=== PATIENT | male | born 1970 | race African-American/Black ===

== ENCOUNTER 2025-08-21 11:27 | Inpatient (IN) | payer OTHER, SELFPAY ==
[2025-08-21] VITALS (13 sets, daily range): BP systolic 111–160; BP diastolic 69–103; BMI 36.2; BMI 34.3
[2025-08-21] MEDS: PROTONIX IV 80 MG IV (08:28)
[2025-08-21] MEDS: SANDOSTATIN 50 MCG IV (08:28)
[2025-08-21] MEDS: PROTONIX 100 IV ×2 (08:29→17:58)
[2025-08-21 08:32] LABS: Hematocrit 37.4 % (39.0-52.0); Hemoglobin 11.8 g/dL (13.0-18.0); Mean Corp Hgb Conc. 31.6 g/dL (33.0-37.0); Mean Corpuscular Volume 90.3 fL (80.0-94.0); Nucleated Red Blood Cells % 0 % (-); Platelet Count 267 10^3/uL (130-400); Red Cell Dist. Width 14.2 % (11.5-14.5)
--- NOTE | 2025-08-21 08:35 | ED.GENMED ---
History of Present Illness
General
Chief Complaint: Vomiting Blood
Source: patient and records
Exam Limitations: none
Time Seen by Provider: 08/21/25 07:52
Nursing documentation reviewed up to this point in time: agreed with
History of Present Illness
History of Present Illness:
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
[place] area has been to [place] before, states has been compliant with his meds, has varices,
Past History
Past History
ED Past Medical History: CVA (with residual left side weakness 'off and on'), HTN, Hypercholesterolemia, NIDDM and Other (Cirrhosis, ETOH abuse)
ED Past Surgical History: None
Social History
Tobacco: Smoker ('five packs a day')
Alcohol: Chronic alcoholic (States one fifth of vodka and one case beer daily)
Drug: None
Personal: Other ()
Living: with family (Resides with his son and grandchildren)
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
Family History
Family History: Hypertension and CAD
Phy Exam
Physical Exam
Physical Exam:
Physical Exam
General: Chronically ill male tremor
Neck: Dry lips noted no
Heart: s1/s2 regular rate and rhythm, no murmur. equal radial pulses.
Lungs: no acute respiratory distress. clear bilaterally
Abdomen: Mild epigastric
Neuro: alert and oriented.
Skin: no rash
Psychiatric: Disheveled anxious
Extremities: no edema.
Course
Orders/Labs/Results
Orders:
Orders
08/21/25 Breakfast
NPO
Allow oral meds: No
Allow clear liquids: Sips of Clears
08/21/25 07:59
Cardiac Monitoring- Treatment ONCE
IV Insert/Care/Rem.- Treatment PRN
Octreotide [Sandostatin] 50 mcg IV NOW STA
Pantoprazole 80 mg/100 ml Nss [Protonix] 80 mg in 100 ml IV NOW
Pantoprazole [Protonix IV] 80 mg IV NOW STA
08/21/25 08:00
Electrocardiogram (*1) Stat
Reason for Study: Other
Other Reason for Exam: GI Bleed
EKG- Treatment ONCE
CR Chest Portable - 1 View Urgent
Comment:
Reason For Exam: bleeding
Reason Study Needs to be Portable: Patient Unstable
08/21/25 08:16
Type+Screen Urgent
Complete Blood Count/With Diff Urgent
Comprehensive Metabolic Panel Urgent
Lipase Urgent
Magnesium Urgent
Comment: ADD ON
PTT Urgent
Prothrombin Time Urgent
08/21/25 08:35
Add On- LAB Urgent
Tests Added?: Magnesium
diazePAM [Valium Injection] 5 mg IV NOW STA
08/21/25 08:59
GASTROINTESTINAL CONSULT Urgent
Consulting Provider: Oswaldo Wilson
Was physician already notified: Yes
08/21/25 10:53
Admit/Transfer Patient As Directed
Co-Sign Provider:
Level of Care: Inpatient admission
Assign to:: IMU- Intermediate Care
Physician / Group: Hospitalist
Diagnosis: Upper GI bleeding
Reason for Hospitalization: Upper GI bleeding
Expected length of stay greater than two midnights?: Yes
ELOS- Estimated Length of Stay in days: 2
I certify the patient meets the requirements for IP care: Yes
08/21/25 10:54
PRN Pain Medication Management As Directed
May give lesser potent ordered pain med per pt: Yes
preference::
Protocol:: Medication orders for pain may be administered in a
manner that supports deferring to patient preference
when the pt is:
- Requesting an ordered lesser potent pain medication.
Least to most potent pain medications are defined
as: acetaminophen < NSAID < tramadol < opioids
(morphine, oxycodone, hydromorphone).
- Requesting a lesser dose of the same medication IF
ORDERED.
- Requesting a less intrusive route of administration
if both routes are prescribed by the provider (PO <
IV).
08/21/25 11:01
Code Status As Directed
Resuscitation Status: Full Code
08/21/25 11:23
US Abdomen Limited Routine
Comment:
Reason For Exam: evaluate for cirrhosis and ascites
08/21/25 16:15
Lactated Ringers [Lr] 500 ml IV 125 mls/hr
Lorazepam [Ativan] 1 mg IV Q1HPRN PRN
Lorazepam [Ativan] 1 mg PO Q2HPRN PRN
Octreotide Acetate [Sandostatin] 500 mcg 0.9% Sodium Chloride 250 ml [Nss] 249 ml IV Q10H
08/21/25 16:15
Urinalysis Routine
Date Specimen was Collected: 08/22/25
Time Specimen was Collected: 02:44
Urine Drug Abuse Screen Routine
Date Specimen was Collected: 08/22/25
Time Specimen was Collected: 02:44
Activity As Directed
Activity Level: With Assistance
INT (Intravenous Needle Therapy) As Directed
Comment: Place 2 IV catheters of the largest bore possible until stable
Orthostatic Vital Signs As Directed
Orthostatic VS Frequency: Now
Comment: then every four hours for twenty-four hours
Pneumatic Compression Sleeves As Directed
Type: Knee high
Vital Signs As Directed
Frequency: Per unit guidelines
DX Deep Vein Thrombosis Video Routine
08/21/25 17:24
Alcohol Urgent
B-Hydroxybutyrate Urgent
GGTP Urgent
H&H Q6H
PTT Urgent
Prothrombin Time Urgent
08/21/25 20:00
Thiamine Injection 200 mg IV Q12
08/21/25 23:00
H&H Q6H
08/22/25 08:00
FOLic ACID [Folvite] 1 mg PO DAILY
08/22/25 18:00
Atorvastatin [Lipitor] 40 mg PO QPM
08/23/25 13:36
Comprehensive Metabolic Panel IN AM
Abnormal Lab Results
08/21/25
08:16
RBC 4.14 L 10^6/uL
(4.70-6.10)
Hgb 11.8 L g/dL
(13.0-18.0)
Hct 37.4 L %
(39.0-52.0)
MCHC 31.6 L g/dL
(33.0-37.0)
Sodium 132 L mmol/L
(135-145)
Glucose 210 H mg/dl
(70-99)
Total Protein 8.5 H g/dl
(6.3-8.2)
08/21/25 08:16
08/21/25 08:16
Vital Signs
Initial and Last Documented VS:
Initial Vital Signs
Temp Pulse Resp BP Pulse Ox
97.9 F 82 16 160/97 100
08/21/25 08:19 08/21/25 08:19 08/21/25 08:19 08/21/25 08:19 08/21/25 08:19
Last Documented Vital Signs
Temp Pulse Resp BP Pulse Ox
98.3 F 75 18 138/83 99
08/24/25 07:00 08/24/25 07:00 08/24/25 07:00 08/24/25 07:00 08/24/25 07:00
MDM/Problems Addressed
Differential Diagnosis Includes:
Guerda-Burgos tear varices gastritis
MDM/Problems Addressed:
Upper GI bleed
Chronic conditions affecting care:
Alcoholism
Chronic conditions affecting care: Neurological disorder
Acute Exacerbation and/or Progression of Chronic Illness: Neurological disorder
*Radiology
Radiology exam reviewed: radiology read reviewed
*Pulse Oximetry
SaO2: 100
Oxygen Mode of Delivery: Room air
Patient hypoxic: no
*EKG
Interpreted by ED Provider?: Yes
Interpretation: abnormal
Comparison EKG: no comparison EKG present
Heart Rate: 78
Rate: normal
Rhythm: sinus
Ischemia: non-specific ST changes
*Classroom Coordinator Interpretation
Rate: normal
Interpretation: normal
Heart Rate: 78
Rhythm: sinus
*Critical Care Note
Total Time (30-74mins, 75-104mins- exclusive of procedures): 30
Data Reviewed
Review of Other/Old Records Reveals: Labs, Records and Discharge Summary
Source: patient
ED Attending Note
-
Portions of this chart may have been created with voice recognition software.� Occasional wrong word or��sound alike� substitutions may have occurred due to the inherent limitations of voice recognition software.
Discharge Plan
Departure
Patient Disposition: Admit
Date of Disposition: 08/21/25
Time of Disposition: 11:01
Admit to: IMU
Presentation/result/management discussed w/ accepting MD/DO: Hospitalist
Patient with high blood pressure during this ER visit?: No
Condition: Fair
Discharge Problem:
Hematemesis, Alcohol abuse
Interventions
Interventions:
*Risk Screen - Suicide Last Done: 08/21/25 08:45
*General Assessment Last Done: 08/21/25 08:45
*Neglect/Abuse Screening Last Done: 08/21/25 08:45
*ED- Fall Risk Assessment Last Done: 08/21/25 08:45
*ED COVID-19 Vaccine History Last Done: 08/21/25 09:15
*ED Influenza Vaccine History Last Done: 08/21/25 08:45
*Nursing Disposition Last Done: 08/21/25 16:27
OL-Etekcs-Forgxaexvw Assessment Last Done: 08/21/25 08:43
ED- Cardiac Assessment Last Done: 08/21/25 08:43
ED- Pulmonary Assessment Last Done: 08/21/25 08:43
Discharge Date and Time
Discharge Date/Time: 08/21/25 16:27
[2025-08-21 08:44] LABS: ALT (SGPT) 35 U/L (0-50); AST (SGOT) 39 U/L (17-59); Albumin 4.8 g/dl (3.5-5.0); Alkaline Phosphatase 97 U/L (38-126); Blood Urea Nitrogen 13 mg/dl (9-20); Calcium 9.6 mg/dl (8.4-10.2); Carbon Dioxide 23 mmol/L (22-30); Chloride 102 mmol/L (98-107); Estimated Creatinine Clearance > 125 ml/min; Glucose 210 mg/dl (70-99); Lipase 106 U/L (23-300); Potassium 4.0 mmol/L (3.5-5.1); Sodium 132 mmol/L (135-145); Total Protein 8.5 g/dl (6.3-8.2); eGFR > 60.00
[2025-08-21 08:48] LABS: INR 0.98; PT 13.3 Sec (11.4-14.6)
[2025-08-21 08:50] LABS: APTT 25.6 Sec (23.4-35.0); Magnesium 1.8 mg/dl (1.6-2.3)
--- NOTE | 2025-08-21 08:55 | PHANOTE ---
med rec note- patient stated medication he not filling or filled. patient claims he takes lactulose, Lasix, gabapentin, glipizide. patient one ecw chart is from 2022 and the other ecw chart with same and name is empty. patient goes to [facility]
and [facility] but no fills for these medication is stated he takes
[2025-08-21] MEDS: VALIUM INJECTION 5 MG IV (08:56)
--- NOTE | 2025-08-21 09:26 | HPS.HSE ---
Addendum entered and electronically signed by Sedrick Chavez MD 08/21/25 13:00:
I personally performed a history and physical exam of the patient and discussed management with the resident. I reviewed the resident's note and agree with the documented findings and plan of care HPI/CC.
55-year-old male past medical history of chronic alcohol abuse, hypertension, hyperlipidemia, diabetes, stroke who was presented via EMS with hematemesis. Patient with alcohol withdrawal in ER and received IV Valium. Patient was sleepy and
lethargic upon my evaluation. Unable to obtain further history.
General: Other (Drowsy,
HEENT: NormoCephalic and Atraumatic
Respiratory: Clear
Cardiac: S1/S2 and Regular Rhythm
GI: Soft, Non Distended, Normal Bowel Sounds and Tender on epigastric region on deep palpaptions
Skin: Warm and Dry
Neuro: sleepy
Impression
Hematemesis likely secondary to upper GI bleed secondary to suspected Guerda-Burgos tear versus variceal bleeding
Suspected acute alcoholic alcohol abuse
Primary hypertension
Hyperlipidemia
Stroke
Diabetes mellitus
Hepatic steatosis
Plan
Keep NPO. IV fluids
Check H&H. PPI drip. Octreotide drip.
Hemoglobin currently stable.
Check abdominal ultrasound.
Defer endoscopy to gastroenterology
Alcohol withdrawal protocol
Check alcohol level and urine drug screen
Insulin sliding scale
Hold blood pressure meds
Monitor mentation closely
DVT prophylaxis SCDs in the setting of GI bleeding
Discussed with gastroenterology
I spent a total of 80 minutes with the patient or on the floor. More than 50% of this time involved counseling and coordination of care.
Original Note:
Family Physician
-
Family Physician: Dr. Monica Hernandez with [facility].
Chief Complaint
-
Hematemesis
History of Present Illness
55-year-old male with past medical history of chronic alcohol abuse, hypertension, hyperlipidemia, DM type II, CVA, Guerda-Burgos tear presented to the ER by EMS for evaluation of bloody vomitus. Patient appears groggy and drowsy, although he is
able to provide history. 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 Patient drinks alcohol every day�bottle of vodka
and beer, last drink was around 10 PM yesterday night. He reports having fatigue, generalized body pains, diffuse abdominal pain since morning. Patient reports that he had cirrhosis for which he takes lactulose every day, not able to recall who
prescribed it (med rec�for constipation). Patient denies fever/chills, chest pain, SOB, palpitations, headaches, melena, not on aspirin/NSAIDs/ anticoagulants.
Medical History
Past Medical History
Past Medical History: Reports CVA, HTN, Hypercholesterolemia and NIDDM
Additional Past Medical History:
Chronic alcohol abuse, fatty liver (ultrasound 2021)
Past Surgical History: Reports None
Social History
Tobacco: Smoker
Alcohol: Daily
Drug: Former User (Cocaine)
Personal: Single
Living: With Family
Employment: Employed
Family History
Family History: Not pertinent
Allergies / Home Medications
Allergies reflects when Allergies were last updated in [facility].
Home Medications with original date entered in [facility]
Allergy/Medication List:
Allergies
Allergy/AdvReac Type Severity Reaction Status Date / Time
risperidone Allergy Intermediate Pharmacy Verified 06/16/23 20:39
to Review
alteplase Allergy Hives; Verified 06/16/23 17:06
tolerated
dose
03/03/23 w/
pre-treatment
Iodinated Contrast Media Allergy See below Verified 06/16/23 17:06
Home Medications
gabapentin 300 mg capsule 300 mg PO BID Neurological Condition ##0 03/07/23
lactulose 10 gram/15 mL oral solution 10 g PO DAILYPRN PRN constipation 03/07/23
cyanocobalamin (vitamin B-12) 1,000 mcg tablet 1,000 mcg PO DAILY Supplement 06/16/23
trazodone 50 mg tablet 50 mg PO HS Sleep 06/16/23
atorvastatin 40 mg tablet 40 mg PO QPM High Cholesterol 06/17/23
amlodipine 10 mg tablet (Norvasc) 10 mg PO DAILY 08/21/25
hydrochlorothiazide 25 mg tablet 25 mg PO DAILY 08/21/25
insulin aspart U-100 100 unit/mL (3 mL) subcutaneous pen (Novolog FlexPen U-100 Insulin aspart) 1 sliding scale dose SC AC 08/21/25
lisinopril 20 mg tablet 20 mg PO DAILY 08/21/25
metformin 500 mg tablet 500 mg PO BID 08/21/25
pantoprazole 20 mg tablet,delayed release (Protonix) 20 mg PO DAILY 08/21/25
Review of Systems
-
A 12 point ROS was completed and negative except as noted: Yes
Physical Exam
Vital Signs
Vital Signs
Temp Pulse Resp BP Pulse Ox
97.9 F 83 14 126/74 99
08/21/25 08:19 08/21/25 09:08 08/21/25 09:08 08/21/25 09:08 08/21/25 09:08
Physical Exam
General: Other (Drowsy, but conversant)
HEENT: NormoCephalic and Atraumatic
Respiratory: Clear
Cardiac: S1/S2 and Regular Rhythm
GI: Soft, Non Distended, Normal Bowel Sounds and Tender
Skin: Warm and Dry
Neuro: Awake, Oriented, Nonfocal/grossly intact and No Sensory Deficits
Laboratory Results
-
08/21/25 08:16
08/21/25 08:16
Laboratory Results
PT 13.3 Sec (11.4-14.6) 08/21/25 08:16
INR 0.98 08/21/25 08:16
APTT 25.6 Sec (23.4-35.0) 08/21/25 08:16
Total Bilirubin 0.5 mg/dl (0.2-1.3) 08/21/25 08:16
AST 39 U/L (17-59) 08/21/25 08:16
ALT 35 U/L (0-50) 08/21/25 08:16
Alkaline Phosphatase 97 U/L (38-126) 08/21/25 08:16
Lipase 106 U/L (23-300) 08/21/25 08:16
Impression/Plan
-
IMPRESSION:
55-year-old male with medical history of chronic alcohol abuse, hypertension, hyperlipidemia, DM type II, fatty liver, CVA presenting to the ER with hematemesis.
PLAN:
#Upper GI bleeding
Patient with history of chronic alcohol abuse
Patient is hemodynamically stable
Etiology likely due to bleeding esophageal varices versus erosive gastritis/duodenal erosions
History of multiple prior admissions for the same.
Patient already started on IV Protonix drip, continue
Start IV fluids�LR
N.p.o.
Start octreotide drip
GI already on board
Ultrasound in 2021 with fatty liver
Will check coags, monitor LFTs
EGD - December 2022 showed salmon colored esophageal mucosa and duodenal erosions. No bleeding. No varices.
EGD when able
Ultrasound abdomen with Doppler
#Acute alcohol withdrawal
Last drink at 10 PM yesterday night.
Patient is actively withdrawing on exam
Patient with history of chronic alcohol abuse
Check toxicology
M sas protocol
#DM type II
Hold metformin
Start SSI
#Hypertension
Hold home amlodipine, hydrochlorothiazide, lisinopril
Monitor blood pressure
#Hyperlipidemia
Can continue atorvastatin, when able
#History of CVA
Diet�n.p.o.
DVT prophylaxis�SCDs
Full code.
--- NOTE | 2025-08-21 09:50 | CON.GI ---
Addendum entered and electronically signed by Oswaldo Wilson MD 08/21/25 13:24:
I saw and evaluated the patient. I reviewed the resident�s note and agree with findings and plan as documented in the resident�s note.
55yo male presents with hematemesis at home in setting of active heavy EtOH intake. Confused and hallucinating in ER. Hgb 11.8. BP 139/82, HR 81. He had episode of hematemesis in 2022 and 2020 with EGDs negative for varices, no signs of active
bleeding. Suspected resolved MW tear. US showed hepatomegaly, fatty liver, normal spleen 2022.
REC:
Since he is in active EtOH withdrawal, will hold off on EGD
He is hemodynamically stable.
Follow Hgb
Octreotide and protonix gtt for now
Consider EGD tomorrow if not in active withdrawal
Check US. If ascites- paracentesis
Original Note:
Medical History
Chief Complaint / HPI
Chief Complaint: hemetemesis
History of Present Illness:
55yoM HTN, HLD, DM, AUD presenting with hematemesis and hematochezia.
Pt is somnolent after receiving Valium for alcohol withdrawal symptoms, but reports waking up this morning and vomiting 'lots' of blood and seeing bright red blood in his stool. He denies ever having this before. Pt has hx AUD last drink last night
at 9pm. He reports usually waking up in the morning and drinking but he did not this morning since he was vomiting blood and dealing with family issues. He reports having dizziness with vomiting but none currently. Pt denies vomiting and then having
blood in vomitus, rather immediately hematemesis. No vomiting or diarrhea since being in ED per pt and nurse.
Pt reports drinking up to a gallon of vodka and case of beers a day for the last 10-12 years. He denies having diagnosed problems with his liver or seeing a GI doctor but his PCP does prescribes him lactulose. He reports having yellowing of his eyes
and tremors of his hands at times but not every day.
He was admitted in 2022 for hemetemesis when he reports not having varices found.
Past Medical History
Past Medical History: HTN, Hypercholesterolemia, IDDM (sliding scale) and Psychiatric (alcohol use disorder)
Social History
Alcohol: Daily (up to gallon vodka and case of beers a day)
Allergies / Home Medications
Allergy/AdvReac Type Severity Reaction Status Date / Time
risperidone Allergy Intermediate Pharmacy Verified 06/16/23 20:39
to Review
alteplase Allergy Hives; Verified 06/16/23 17:06
tolerated
dose
03/03/23 w/
pre-treatment
Iodinated Contrast Media Allergy See below Verified 06/16/23 17:06
�Medication �Instructions �Recorded
gabapentin 300 mg capsule 300 mg PO BID Neurological 03/07/23
Condition ##0
lactulose 10 gram/15 mL oral 10 g PO DAILYPRN PRN constipation 03/07/23
solution
cyanocobalamin (vitamin B-12) 1,000 mcg PO DAILY Supplement 06/16/23
1,000 mcg tablet
trazodone 50 mg tablet 50 mg PO HS Sleep 06/16/23
atorvastatin 40 mg tablet 40 mg PO QPM High Cholesterol 06/17/23
amlodipine 10 mg tablet (Norvasc) 10 mg PO DAILY 08/21/25
hydrochlorothiazide 25 mg tablet 25 mg PO DAILY 08/21/25
insulin aspart U-100 100 unit/mL 1 sliding scale dose SC AC 08/21/25
(3 mL) subcutaneous pen (Novolog
FlexPen U-100 Insulin aspart)
lisinopril 20 mg tablet 20 mg PO DAILY 08/21/25
metformin 500 mg tablet 500 mg PO BID 08/21/25
pantoprazole 20 mg tablet,delayed 20 mg PO DAILY 08/21/25
release (Protonix)
Review of Systems
-
Unable to obtain full review of systems at this time due to: Other (somnolent )
History Source: Patient
Abdomen/GI: Reports Vomiting (blood ) and Bloody Stools
Vital Signs
Temp Pulse Resp BP Pulse Ox
97.9 F 85 11 126/74 99
08/21/25 08:19 08/21/25 09:30 08/21/25 09:30 08/21/25 09:08 08/21/25 09:30
Physical Exam
Exam
General: Other (somnolent)
HEENT: Normocephalic, Moist Mucous Membranes and Other (mild scleral icterus, poor dentition )
Respiratory: Clear and Non Labored Respirations (snoring)
Cardiac: S1/S2 and Regular Rhythm
GI: Soft, Tender (diffusely, voluntary guarding) and Distended
Musculoskeletal: No Edema
Skin: Warm and Dry
Neuro: AO x 3 and Tremors (asterixis )
Psych: Other (somnolent)
Results
WBC 9.1 10^3/uL (4.8-10.8) 08/21/25 08:16
Hgb 11.8 g/dL (13.0-18.0) L 08/21/25 08:16
Hct 37.4 % (39.0-52.0) L 08/21/25 08:16
MCV 90.3 fL (80.0-94.0) 08/21/25 08:16
Plt Count 267 10^3/uL (130-400) 08/21/25 08:16
Absolute Neuts (auto) 5.2 10^3/uL (1.4-6.5) 08/21/25 08:16
PT 13.3 Sec (11.4-14.6) 08/21/25 08:16
INR 0.98 08/21/25 08:16
APTT 25.6 Sec (23.4-35.0) 08/21/25 08:16
Sodium 132 mmol/L (135-145) L 08/21/25 08:16
Potassium 4.0 mmol/L (3.5-5.1) 08/21/25 08:16
Chloride 102 mmol/L (98-107) 08/21/25 08:16
Carbon Dioxide 23 mmol/L (22-30) 08/21/25 08:16
BUN 13 mg/dl (9-20) 08/21/25 08:16
Creatinine 0.7 mg/dL (0.7-1.3) 08/21/25 08:16
Calcium 9.6 mg/dl (8.4-10.2) 08/21/25 08:16
Total Bilirubin 0.5 mg/dl (0.2-1.3) 08/21/25 08:16
AST 39 U/L (17-59) 08/21/25 08:16
ALT 35 U/L (0-50) 08/21/25 08:16
Alkaline Phosphatase 97 U/L (38-126) 08/21/25 08:16
Lipase 106 U/L (23-300) 08/21/25 08:16
Diagnostic Image Results:
CXR
IMPRESSION:
No evidence of active cardiopulmonary disease.
Prior GI Procedures:
EGD: 05/2023 No varices
Colonoscopy:
Assessment / Plan
-
55yoM HTN, HLD, IDDM, AUD presenting with hematemesis and hematochezia.
AFVSS. Hemodynamically stable, Hgb stable from 2 years ago. Pt drinks bottle of vodka and case of beer a day. Actively withdrawing; last alcoholic drink last night at 9pm. Per nursing, pt was having visual hallucinations and tremulous, scoring MSAS.
LFTs WNL, plts WNL, coags WNL. Objectively not cirrhotic per labs.
ECG normal. CXR normal. Mild scleral icterus. Pt was not cirrhotic on US 2 years ago. Pt reports having heavy alcohol use for last 10 years, so possible to have had rapid progression. Pt reports vomiting immediately with blood, so less likely
ambrosio seth but still possible. Diffuse abdominal pain. Pt did not reports recent NSAID use but difficult historian given somnolence. Demonstrating asterixis and very mild scleral icterus despite bilirubin low, WNL.
Ambrosio seth vs bleeding ulcer vs varices
#hematemesis
- Plan for EGD. Pt currently too somnolent to safely scope. Plan for once mental status improves.
- Continue on PPI drip. Received octreotide bolus, continue on octreotide drip
- Abdominal US. Evaluate for ascites and cirrhosis. If large amount of fluid, plan for paracentesis. R/o SBP.
- Monitor mental status and symptoms. No vomiting or diarrhea since presenting
- Continue home lactulose if able to take PO
-
-
Thank you for consultation and allowing me to participate in the patient's care. Please call the search engine optimization analyst GI physician during the after hours with any questions or concerns.
[2025-08-21 17:14] LABS: Glucose - Point of Care 161 mg/dl (70-99)
[2025-08-21] MEDS: ATIVAN 1 MG IV (17:15)
[2025-08-21 17:31] LABS: Hematocrit 33.2 % (39.0-52.0); Hemoglobin 11.3 g/dL (13.0-18.0)
[2025-08-21 17:41] LABS: INR 0.99; PT 13.4 Sec (11.4-14.6)
[2025-08-21 17:42] LABS: APTT 25.6 Sec (23.4-35.0)
[2025-08-21 17:49] LABS: GGTP 39 U/L (15-73)
[2025-08-21] MEDS: SANDOSTATIN 250 MCG IV (17:49)
[2025-08-21] MEDS: NOVOLOG FLEXPEN-LOW RESISTANCE SC (19:05)
[2025-08-21] MEDS: ATIVAN 2 MG IV ×3 (19:52→22:30)
[2025-08-21] MEDS: LR 1000 IV (19:52)
[2025-08-21] MEDS: THIAMINE INJECTION 200 MG IV (19:52)
--- NOTE | 2025-08-21 20:00 | PTCARENOTE ---
Received pt. at 1900. Pt. currently awake. Restless. PRN Ativan given per MSAS, see MAR. Denies pain/discomfort. Heart rhythm sinus. Blood pressure normotensive. Currently on room air. Lungs sound diminished. NPO with sips of clears. Voiding in
urinal. Skin as documented. Vital signs stable at this time.
--- NOTE | 2025-08-21 20:19 | PTCARENOTE ---
recieved pt from ED. msas as documented. pt medicated per protocol. pt states that he is very anxious and is seeing birds. pt scored moderate risk on suicide screen. pt states his life 'sucks' but says he doesnt currently want to hurt himself.
physician notified. one to one observation ordered and initiated. octreotide and protonix drips infusing. no signs of bleeding at this time. pt reported some nausea and crampy feeling in abdomen. also c/o feeling hungry. few sips of clears given.
labs sent and hemoglobin stable.
[2025-08-21 22:44] LABS: Glucose - Point of Care 153 mg/dl (70-99)
[2025-08-21 23:10] LABS: Hematocrit 33.7 % (39.0-52.0); Hemoglobin 11.6 g/dL (13.0-18.0)
[2025-08-21 23:30] LABS: Magnesium 1.7 mg/dl (1.6-2.3)
[2025-08-22] VITALS (9 sets, daily range): BP systolic 110–159; BP diastolic 60–108; BMI 34.8
[2025-08-22] MEDS: ATIVAN 2 MG IV (00:30)
[2025-08-22] MEDS: NOVOLOG FLEXPEN-LOW RESISTANCE 1 UNITS SC ×3 (00:34→17:37)
[2025-08-22] MEDS: PROTONIX 100 IV (02:10)
[2025-08-22] MEDS: SANDOSTATIN 250 MCG IV (02:11)
[2025-08-22] MEDS: LR 1000 IV (02:14)
[2025-08-22 03:13] LABS: Urine Character Clear (Clear)
[2025-08-22 03:29] LABS: Urine Red Blood Cell 0-2 /HPF (0-2); Urine Squamous Cell 0-2 /LPF (Few); Urine White Cell 0-2 /HPF (0-5)
[2025-08-22 05:19] LABS: Glucose - Point of Care 196 mg/dl (70-99)
[2025-08-22] MEDS: VITAMIN B-12 1000 MCG PO (07:50)
[2025-08-22] MEDS: THIAMINE INJECTION 200 MG IV ×2 (07:51→19:40)
[2025-08-22] MEDS: FOLVITE 1 MG PO (07:51)
--- NOTE | 2025-08-22 08:22 | W.PN.GI.CBS2 ---
Today's Communication / Plan
-
EGD today to evaluate hematemesis
Hgb stable in 11 range
If EGD negative, d/c octreotide, protonix gtts
Assessment / Plan
-
Summary: 55yo male presents with hematemesis at home in setting of active heavy EtOH intake. Confused and hallucinating in ER. Hgb 11.8. BP 139/82, HR 81. He had episode of hematemesis in 2022 and 2020 with EGDs negative for varices, no signs of
active bleeding. Suspected resolved MW tear. US showed hepatomegaly, fatty liver, normal spleen 2022.
08/21/25 US- Increased echogenicity liver, suggestive fatty infiltration. No ascites. Limited US
Impression:
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 Possible MWT vs varices, portal gastropathy. Labs and US not suggestive of cirrhosis and EGD in 2022 negative varices or gastropathy
EtOH use
Subjective
Subjective
Date of Service: August 22, 2025
No vomiting overnight. More alert this am. Answering questions. Wants apple juice
Objective
Data Reviewed
Laboratory Data:
Laboratory Results
PT 13.4 Sec (11.4-14.6) 08/21/25 17:24
INR 0.99 08/21/25 17:24
APTT 25.6 Sec (23.4-35.0) 08/21/25 17:24
Phosphorus 3.2 mg/dl (2.5-4.5) 08/21/25 23:00
Magnesium 1.7 mg/dl (1.6-2.3) 08/21/25 23:00
Total Bilirubin 0.5 mg/dl (0.2-1.3) 08/21/25 08:16
AST 39 U/L (17-59) 08/21/25 08:16
ALT 35 U/L (0-50) 08/21/25 08:16
Alkaline Phosphatase 97 U/L (38-126) 08/21/25 08:16
Lipase 106 U/L (23-300) 08/21/25 08:16
Vital Signs and I&O:
Vital Signs
Temp Pulse Resp BP Pulse Ox
98.0 F 76 11 143/87 95
08/22/25 03:06 08/22/25 06:00 08/22/25 06:00 08/22/25 06:00 08/22/25 06:00
I&O
08/21/25 08/22/25 08/23/25
06:59 06:59 06:59
Intake Total 1919
Output Total 975 / 975
Balance 945 / 945
Physical Exam
Physical Exam
GI: Soft, Non Distended and Tender
--- NOTE | 2025-08-22 10:55 | W.PN.UPDATE ---
Update Note
Progress Note Update
EGD done
No signs of bleeding.
Normal esophagus and stomach
Medium sized duodenal bulb polyp- bx'd
REC:
Regular diet
Hgb has been stable in 11 range
D/C octreotide and protonix
Await path
[2025-08-22] MEDS: LR IV (12:24)
--- NOTE | 2025-08-22 12:35 | CS.PSYCHR ---
Consult Summary - Psychiatry
-
Patient seen by me on 08/22/2025 from 12:10PM-12:36PM
Psychiatry consult for suicidal ideations. 55 yo male with history of severe alcohol use disorder (and UDS + for Fentanyl, Barbs, benzos, cocaine) admitted on 08/21/2025 for hematemesis and alcohol withdrawal. Team was contacted because patient
expressed suicidal ideations to RN. On exam he admits to excess alcohol consumption but denies using any other drugs despite UDS results. He reports drinking alcohol every day�bottle of vodka and beer, last drink was around 10 PM night before
admission.He states he wants to go to a rehab when medically stable. He denies suicidal ideations and says what he was trying to express was that his life is hard. I explained that D&A rehab would not be an appropriate level of care for someone who
is suicidal and he repeats that he is not. He also states he needs help with housing as he has been on the streets.
MSE- lying in bed eating crackers ravenously and demanding lunch and iced beverage. goal directed. admits to being depressed about his life but denies suicidal ideations, active or passive. he denies HI/AVH. no delusions. Poor insight and judgement.
Past psych- admits to depression. denies past suicide attempts. denies psychiatric medications or treatment
D&A- see HPI
Social- homeless, denies having a support system
Family history- father alcohol use disorder
A/P-55 yo male with severe alcohol use disorder/withdrawal as well as urine positive for multiple substances. I suspect a substance induced mood disorder/withdrawal from cocaine could be contributing significantly to his current presentation. Will
discontinue 1:1 given no active SI at this time. Will continue to monitor mood. If patient remains interested in D&A rehab placement once medically stable, it can be pursued. Needs case management.
[2025-08-22 12:38] LABS: Glucose - Point of Care 195 mg/dl (70-99)
--- NOTE | 2025-08-22 12:38 | W.PN.HOSP.TC ---
Addendum entered and electronically signed by Sedrick Chavez MD 08/22/25 17:40:
still awaiting blood work from am...
Original Note:
Today's Communication/Plan
-
Diabetic diet
Restart BP meds
Monitor hemoglobin. Labs pending
Transfer to telemetry
Assessment / Plan
Assessment / Plan
General: Nodding yes and no, not verbalizing much
HEENT: NormoCephalic and Atraumatic
Respiratory: Clear
Cardiac: S1/S2 and Regular Rhythm
GI: Soft, Non Distended, Normal Bowel Sounds and Tender
Skin: Warm and Dry
Neuro: Awake, Oriented, Nonfocal/grossly intact and No Sensory Deficits
Psych: Flat affect.
55-year-old male with medical history of chronic alcohol abuse, hypertension, hyperlipidemia, DM type II, fatty liver, CVA presenting to the ER with hematemesis.
PLAN:
#Reported hematemesis
Patient with history of chronic alcohol abuse
History of multiple prior admissions for the same.
Status post Protonix and octreotide drip.
Status post endoscopy with no active signs of bleeding. Normal esophagus and stomach. Medium size duodenal bulb polyp biopsy.
Hemoglobin has remained stable.
Diet has been restarted
Hgb has been stable in 11 range
Await repeat a.m. labs
#Acute alcohol withdrawal
#Polysubstance abuse
#Possible depression
#Insomnia continue with trazodone
Urine drug screen was noted to be positive for fentanyl, cocaine and barbiturates. Benzodiazepine could have been from administration in ER
Psych evaluation as patient was found to be moderate risk for suicidal screening. One-to-one in place.
Continue with alcohol withdrawal protocol. MSAS score low.
#DM type II
Hold metformin
Start SSI
#Hypertension
Restart home amlodipine, hydrochlorothiazide, lisinopril slowly
Monitor blood pressure
#Hyperlipidemia
Can continue atorvastatin, when able
#History of CVA
DVT prophylaxis�SCDs in the setting of reported hematemesis
Full code.
Anticipated Discharge: Within 24 hours
Subjective/Interval History
-
Date of Service: August 22, 2025
eating lunch
no further episode of hematemesis/vomiting
Objective Data
-
Labs:
Laboratory Results
08/22/25 08/22/25
04:15 06:00
WBC Pending
Hgb Cancelled Pending
Hct Cancelled Pending
Plt Count Pending
Vital Signs:
Vital Signs
Temp Pulse Resp BP Pulse Ox
98.3 F 76 11 143/87 95
08/22/25 07:00 08/22/25 06:00 08/22/25 06:00 08/22/25 06:00 08/22/25 06:00
I&O
08/21/25 08/22/25 08/23/25
06:59 06:59 06:59
Intake Total 1919 / 1919
Output Total 975 / 975 350 / 350
Balance 945 / 945 -350 / -350
Data Reviewed
-
Total Time Spent with Patient (in minutes): 58
[2025-08-22] MEDS: NOVOLOG FLEXPEN-LOW RESISTANCE SC (13:38)
[2025-08-22 17:34] LABS: Glucose - Point of Care 199 mg/dl (70-99)
[2025-08-22] MEDS: LIPITOR 40 MG PO (17:38)
--- NOTE | 2025-08-22 17:43 | PTCARENOTE ---
pt expressing frustration that he hasnt received ativan when requested. Explained to pt that there is a protocol that needs to be followed and he does not meet the criteria. Pt states 'this is bullshit, everyone else just gives me what I want.' This
RN apologized and readdressed the fact that he is being assessed frequently for any signs and symptoms of withdrawal. Pt continues to be annoyed.
[2025-08-22] MEDS: ATIVAN 1 MG PO (19:50)
[2025-08-22] MEDS: DESYREL 50 MG PO (20:48)
[2025-08-22 21:04] LABS: Glucose - Point of Care 186 mg/dl (70-99)
--- NOTE | 2025-08-22 23:34 | PTCARENOTE ---
assumed care of patient. pt is AAOx3, angry, uncooperative, and argumentative with staff. pt is constantly asking for IV ativan. pt educated on the protocol for alcohol, pt meeting criteria in the beginning of the shift for PO ativan, pt tried to
refuse saying he only wanted IV. pt constantly demanding for food, saying we are trying to stave him. positive environment maintained. pt was able to walk to the bathroom x1 assist, pt is pretty unsteady on his feet. bed alarm on. care ongoing. MSAS
currently 0.
[2025-08-23] VITALS (7 sets, daily range): BP systolic 115–156; BP diastolic 51–89
--- NOTE | 2025-08-23 05:10 | PTCARENOTE ---
pt refusing blood work this AM. stating he 'wants to sleep'.
--- NOTE | 2025-08-23 07:30 | PTCARENOTE ---
assumed care of pt from previous RN. Pt appears to be resting comfortably, no notable signs of withdrawal present. Pt NSR, HR in 70s. Pt w/ normal BP. 119/51. No tremors noted. Pt requesting he can 'see protocol to know how he can get IV ativan.'
[2025-08-23 08:53] LABS: Glucose - Point of Care 188 mg/dl (70-99)
--- NOTE | 2025-08-23 09:02 | W.PN.GI.CBS2 ---
Today's Communication / Plan
-
Await path
No further vomiting
No bleeding seen on EGD
I told pt we will contact him with path results and let him know if polyp needs to be resected
Will sign off. Please call back if needed
Assessment / Plan
-
Summary: 55yo male presents with hematemesis at home in setting of active heavy EtOH intake. Confused and hallucinating in ER. Hgb 11.8. BP 139/82, HR 81. He had episode of hematemesis in 2022 and 2020 with EGDs negative for varices, no signs of
active bleeding. Suspected resolved MW tear. US showed hepatomegaly, fatty liver, normal spleen 2022.
08/21/25 US- Increased echogenicity liver, suggestive fatty infiltration. No ascites. Limited US
08/22/25 EGD- Medium sized duodenal bulb polyp- bx'd. Otherwise normal EGD
Impression:
Hematemesis reported at home [employer] [employer]. Possible MWT vs varices, portal gastropathy. Labs and US not suggestive of cirrhosis and EGD in 2022 negative varices or gastropathy
EtOH use
Subjective
Subjective
Date of Service: August 23, 2025
No further vomiting. Tolerating POs
Objective
Data Reviewed
Laboratory Data:
Laboratory Results
PT Cancelled 08/22/25 15:21
INR Cancelled 08/22/25 15:21
APTT Cancelled 08/22/25 15:21
Phosphorus Cancelled 08/22/25 15:21
Magnesium Cancelled 08/22/25 15:21
Total Bilirubin Cancelled 08/22/25 15:21
AST Cancelled 08/22/25 15:21
ALT Cancelled 08/22/25 15:21
Alkaline Phosphatase Cancelled 08/22/25 15:21
Lipase 106 U/L (23-300) 08/21/25 08:16
Vital Signs and I&O:
Vital Signs
Temp Pulse Resp BP Pulse Ox
97.8 F 72 14 115/51 97
08/23/25 07:44 08/23/25 06:01 08/23/25 06:01 08/23/25 06:01 08/23/25 06:01
I&O
08/22/25 08/23/25 08/24/25
06:59 06:59 06:59
Intake Total 1919
Output Total 975 / 975 2225 / 222
Balance 945 / 945 -2225 / -222
Physical Exam
Physical Exam
GI: Soft, Non Distended and Non Tender
[2025-08-23] MEDS: VITAMIN B-12 1000 MCG PO (09:44)
[2025-08-23] MEDS: NOVOLOG FLEXPEN-LOW RESISTANCE 1 UNITS SC (09:44)
[2025-08-23] MEDS: NORVASC 10 MG PO (09:45)
[2025-08-23] MEDS: THIAMINE INJECTION 200 MG IV ×2 (09:45→21:29)
[2025-08-23] MEDS: PROTONIX 20 MG PO (09:45)
[2025-08-23] MEDS: ZESTRIL 20 MG PO (09:45)
[2025-08-23] MEDS: FOLVITE 1 MG PO (09:46)
--- NOTE | 2025-08-23 09:57 | PTCARENOTE ---
pt expressed to this RN that she is 'mean', because we don't give IV ativan whenever asked. Again, RN reinforced there is a protocol for withdrawal and he currently does not meet the protocol. After RN left room, pt was observed from doorway to be
resting comfortably and aggressively eating peanut butter crackers.
--- NOTE | 2025-08-23 10:48 | CM ---
Consult received for [facility] to see patient for inpatient detox/rehab. Call placed to Kadie with [facility] who is very familiar with this patient. Per Kadie, pt was just at [facility] last week and per her report, repeatedly
leaves prior to receiving care.
Kadie will update CM once she has spoken to Papito, and if he is agreeable to going into treatment, CM will send records to the facility identified by [facility].
--- NOTE | 2025-08-23 12:16 | W.PN.HOSP.TC ---
Today's Communication/Plan
-
Await detox rehab placement
DC Alcohol withdrawal protocol-MSAS score of 0. No tremors/no tachycardia.
AWAITING LABS for the past 24h.
tx to Med surg
restar metformin
Assessment / Plan
Assessment / Plan
General: Nodding yes and no, not verbalizing much
HEENT: NormoCephalic and Atraumatic
Respiratory: Clear
Cardiac: regular rhythm, no tachycardia
GI: Soft, Non Distended, Normal Bowel Sounds and Tender
Skin: Warm and Dry
Neuro: Awake, Oriented, Nonfocal/grossly intact and No Sensory Deficits, no tremors,
Psych: Flat affect.
55-year-old male with medical history of chronic alcohol abuse, hypertension, hyperlipidemia, DM type II, fatty liver, CVA presenting to the ER with hematemesis.
PLAN:
#Reported hematemesis
Patient with history of chronic alcohol abuse
History of multiple prior admissions for the same.
Status post Protonix and octreotide drip.
Status post endoscopy with no active signs of bleeding. Normal esophagus and stomach. Medium size duodenal bulb polyp biopsy.
Diet has been restarted
last Hgb around 11 range.
Await repeat a.m. labs-RN aware. Awaiting for phlebotomy/VAT team
#Acute alcohol withdrawal
#Polysubstance abuse
#Possible depression
#Insomnia continue with trazodone
Urine drug screen was noted to be positive for fentanyl, cocaine and barbiturates. Benzodiazepine could have been from administration in ER
Psych evaluation and no concern for SI- Probably drug related labile mood.
MSAS score persistently at 0. DC MSAS/Ativan.
Now wants detox rehab-[facility] involved.
#DM type II
restart metformin
Start SSI
#Hypertension
Restart home amlodipine, hydrochlorothiazide, lisinopril
Monitor blood pressure
#Hyperlipidemia
continue atorvastatin, when able
#History of CVA
DVT prophylaxis�SCDs in the setting of reported hematemesis
Full code.
Anticipated Discharge: Today
Subjective/Interval History
-
Date of Service: August 23, 2025
watching tv
looks comfortable
Objective Data
-
Labs:
Laboratory Results
08/23/25
06:00
WBC Pending
Hgb Pending
Hct Pending
Plt Count Pending
Vital Signs:
Vital Signs
Temp Pulse Resp BP Pulse Ox
98.1 F 72 14 127/89 97
08/23/25 11:00 08/23/25 06:01 08/23/25 06:01 08/23/25 09:45 08/23/25 06:01
I&O
08/22/25 08/23/25 08/24/25
06:59 06:59 06:59
Intake Total 1919 / 1920
Output Total 975 / 975 2225 / 222
Balance 945 / 945 -2225 / -2224
Data Reviewed
-
Total Time Spent with Patient (in minutes): 55
[2025-08-23 12:26] LABS: Glucose - Point of Care 230 mg/dl (70-99)
[2025-08-23] MEDS: NOVOLOG FLEXPEN-LOW RESISTANCE 2 UNITS SC ×2 (13:05→16:38)
--- NOTE | 2025-08-23 13:11 | PTCARENOTE ---
d/c [facility]. Pt aware and unhappy, however content at the moment since he has snacks.
--- NOTE | 2025-08-23 13:51 | W.PN.UPDATE ---
Update Note
Progress Note Update
Patient seen by me on 08/23/2025 from 12:40pm-12:52pm
Follow up for alcohol use disorder withdrawal and expression of suicidal ideations. Patient is fully awake today and says he is feeling better but needs help. He states he wants to go to a D&A rehab program. He denies suicidal ideations. He
understands that if you are suicidal, you are not a candidate for inpatient rehab. Such programs are for people who are future oriented and motivated to get clean. He is agreeable with [facility] evaluation which has been requested via CM.
A/P- 55 yo male with substance induced mood disorder, improved, in the context of severe alcohol use and other substances including cocaine. Will be evaluated for possible inpatient D&A treatment.
[2025-08-23 14:01] LABS: ALT (SGPT) 29 U/L (0-50); AST (SGOT) 30 U/L (17-59); Albumin 3.8 g/dl (3.5-5.0); Alkaline Phosphatase 75 U/L (38-126); Blood Urea Nitrogen 9 mg/dl (9-20); Calcium 9.2 mg/dl (8.4-10.2); Carbon Dioxide 23 mmol/L (22-30); Chloride 106 mmol/L (98-107); Estimated Creatinine Clearance > 125 ml/min; Glucose 228 mg/dl (70-99); Potassium 4.0 mmol/L (3.5-5.1); Sodium 131 mmol/L (135-145); Total Protein 7.2 g/dl (6.3-8.2); eGFR > 60.00
[2025-08-23 14:03] LABS: Hematocrit 34.0 % (39.0-52.0); Hemoglobin 11.1 g/dL (13.0-18.0); Mean Corp Hgb Conc. 32.6 g/dL (33.0-37.0); Mean Corpuscular Volume 87.2 fL (80.0-94.0); Platelet Count 242 10^3/uL (130-400); Red Cell Dist. Width 13.7 % (11.5-14.5)
--- NOTE | 2025-08-23 14:43 | CM ---
GUSTAVO spoke with Obdulia with [facility] who advised pt would be appropriate for transfer to [facility] and [place] [facility] for IP substance abuse rehab treatment. Records will need to be faxed to [facility] ( ) and [place] ( ) when medically stable for transfer.
[2025-08-23 16:45] LABS: Glucose - Point of Care 209 mg/dl (70-99)
[2025-08-23] MEDS: LIPITOR PO (18:09)
[2025-08-23] MEDS: GLUCOPHAGE PO (18:09)
--- NOTE | 2025-08-23 18:09 | PTCARENOTE ---
pt refused PM meds. States 'if it's not ativan, I don't want it.'
--- NOTE | 2025-08-23 19:59 | PTCARENOTE ---
report given to RN, pt m/s level of care. pt transferred to [facility] by wheelchair with all belongings.
[2025-08-23 21:24] LABS: Glucose - Point of Care 188 mg/dl (70-99)
[2025-08-23] MEDS: DESYREL 50 MG PO (21:30)
[2025-08-24 07:00] VITALS: BP 138/83
[2025-08-24 07:58] LABS: Glucose - Point of Care 179 mg/dl (70-99)
[2025-08-24] MEDS: VITAMIN B-12 1000 MCG PO (08:41)
[2025-08-24] MEDS: FOLVITE 1 MG PO (08:41)
[2025-08-24] MEDS: ZESTRIL 20 MG PO (08:41)
[2025-08-24] MEDS: PROTONIX 20 MG PO (08:42)
[2025-08-24] MEDS: GLUCOPHAGE 500 MG PO (08:42)
[2025-08-24] MEDS: NORVASC 10 MG PO (08:42)
[2025-08-24] MEDS: THIAMINE INJECTION 200 MG IV (08:42)
--- NOTE | 2025-08-24 09:53 | PTCARENOTE ---
Patient walked out AMA after taking shower and dressing himself. Refused staff requests to wait for physician to complete AMA paperwork. RN removed IV line prior to shower. Provider notified.
--- NOTE | 2025-08-24 09:59 | W.DCSUMMARY ---
Discharge Summary
Discharge Data
Date of Admission: 08/21/25
Date of Discharge: 08/24/25
-
Pending Results: No
Hospital Course
55-year-old male past medical history of hypertension, hyperlipidemia, stroke, diabetes mellitus, alcohol abuse, polysubstance abuse suspected who is presenting with reported history of hematemesis. It was reported patient drinks 1/5 of vodka and a
case of beer for the past 10 to 12 years. In the ER patient with withdrawal and received IV Valium. Patient hemoglobin was trended which was found to be stable. Patient was started on PPI and octreotide drip. Patient underwent endoscopy without
any active signs of bleeding. Normal esophagus and stomach. Medium sized duodenal bulb polyp which was biopsied. Patient was started on regular diet. Drips were discontinued. Patient with persistently 0 score on MSAS scale. Patient urine drug
screen was found to be positive for fentanyl, barbiturates, benzodiazepine and cocaine. Benzodiazepine could have been from Valium which patient received in ER. Alcohol level was nondetected. Patient refused he did drugs. Patient expressed that
he wanted to go to detox rehab. Patient also expressed moderate suicidal risk on admission and psychiatry was consulted. Per psych he was not suicidal and one-to-one was discontinued. [facility] was involved and was looking into getting patient placed
to rehab. Patient was tolerating diet without any difficulty. His home medications were restarted slowly. Patient was asking IV Ativan multiple times. Patient left AGAINST MEDICAL ADVICE on 08/24/2024 without waiting for physician to talk to
him. RN was able to remove the IV.
Discharge Plan
-
Patient Disposition: Against Medical Advice
Prescriptions:
No Action
gabapentin 300 mg Capsule
300 mg PO BID Qty: 0
lactulose 10 gram/15 mL Solution
10 g PO DAILYPRN PRN (Reason: constipation)
trazodone 50 mg Tablet
50 mg PO HS
cyanocobalamin (vitamin B-12) 1,000 mcg Tablet
1,000 mcg PO DAILY
atorvastatin 40 mg tablet
40 mg PO QPM
metformin 500 mg Tablet
500 mg PO BID
lisinopril 20 mg Tablet
20 mg PO DAILY
pantoprazole [Protonix] 20 mg Tablet,Delayed Release (Dr/Ec)
20 mg PO DAILY
amlodipine [Norvasc] 10 mg Tablet
10 mg PO DAILY
hydrochlorothiazide 25 mg Tablet
25 mg PO DAILY
insulin aspart U-100 [Novolog FlexPen U-100 Insulin] 100 unit/mL (3 mL) Insulin Pen
1 sliding scale dose SC AC
Discharge Date and Time
Discharge Date/Time: 08/24/25 09:31
Print Language: TAMAZIGHT
== END 2025-08-24 09:31 | disposition left against medical advice (07) | DRG 378 ==
LOC: 3 WEST ACU 11:27
PROVIDERS: Student in an Organized Health Care Education/Training Program; ADMITTING PHYSICIAN Hospitalist; CONSULT PHYSICIAN Psychiatry & Neurology Psychiatry; CONSULT PHYSICIAN Specialist; EMERGENCY PHYSICIAN Emergency Medicine
PROC: 0DB98ZX Excision of Duodenum, Via Natural or Artificial Opening Endoscopic, Diagnostic (ICD-10-PCS; 2025-08-22)
DX: K92.0 Hematemesis (principal); F10.139 Alcohol abuse with withdrawal, unspecified; I69.354 Hemiplegia and hemiparesis following cerebral infarction affecting left non-dominant side; K92.1 Melena; F17.210 Nicotine dependence, cigarettes, uncomplicated; Z87.19 Personal history of other diseases of the digestive system; E11.9 Type 2 diabetes mellitus without complications; I10 Essential (primary) hypertension; F19.10 Other psychoactive substance abuse, uncomplicated; Z53.29 Procedure and treatment not carried out because of patient's decision for other reasons; K31.7 Polyp of stomach and duodenum; R44.1 Visual hallucinations
CPT/HCPCS: 71045; 76705; 80053; 80306; 80307; 81003; 81015; 82010; 82077; 82962; 82977; 83690; 83735; 84100; 85014; 85018; 85025; 85027; 85610; 85730; 86850; 86900; 86901; 88305; 93005; 96374; 96375; 99291; 99406; J2354

== ENCOUNTER 2025-10-08 23:50 | Inpatient (IN) | payer OTHER, SELFPAY ==
[2025-10-08 20:42] VITALS: BP 158/88
[2025-10-08 21:13] VITALS: BP 114/54
[2025-10-08 21:21] VITALS: BMI 35.6
[2025-10-08 21:22] VITALS: BP 114/54
--- NOTE | 2025-10-08 21:25 | EDRN ---
the pt gait is very unsteady. the pt required assist x2 ER staff members to stand and pivot from wheelchair in the ER stretcher.
[2025-10-08 21:37] VITALS: BP 156/71
[2025-10-08 21:46] LABS: Hematocrit 33.7 % (39.0-52.0); Hemoglobin 10.9 g/dL (13.0-18.0); Mean Corp Hgb Conc. 32.3 g/dL (33.0-37.0); Mean Corpuscular Volume 85.5 fL (80.0-94.0); Nucleated Red Blood Cells % 0 % (-); Platelet Count 290 10^3/uL (130-400); Red Cell Dist. Width 13.7 % (11.5-14.5)
[2025-10-08 21:55] LABS: COVID-19 Antigen Negative (Negative)
[2025-10-08 21:56] LABS: ALT (SGPT) 18 U/L (0-50); AST (SGOT) 22 U/L (17-59); Albumin 3.6 g/dl (3.5-5.0); Alkaline Phosphatase 110 U/L (38-126); Blood Urea Nitrogen 5 mg/dl (9-20); Calcium 9.1 mg/dl (8.4-10.2); Carbon Dioxide 21 mmol/L (22-30); Chloride 100 mmol/L (98-107); Estimated Creatinine Clearance > 125 ml/min; Glucose 366 mg/dl (70-99); Potassium 3.8 mmol/L (3.5-5.1); Sodium 132 mmol/L (135-145); Total Protein 7.5 g/dl (6.3-8.2); eGFR > 60.00
[2025-10-08 22:00] VITALS: BP 149/74
[2025-10-08 23:00] VITALS: BP 120/71
--- NOTE | 2025-10-08 23:31 | ED.GENMED ---
History of Present Illness
General
Chief Complaint: Fall
Source: patient
Time Seen by Provider: 10/08/25 22:35
Nursing documentation reviewed up to this point in time: agreed with
History of Present Illness
History of Present Illness:
Note:
CHIEF COMPLAINT(S)
Syncope and generalized body aches.
HISTORY OF PRESENT ILLNESS
The patient is a 55-year-old male with a history of alcohol and substance use presenting with an episode of syncope. The patient reports that the event occurred at a supermarket on a recent visit. He describes using significant amounts of
alcohol�consuming up to a case of beer and half a gallon of vodka daily�as well as taking nine Xanax tablets and ten Percocet daily. The patient has recently abstained from alcohol for two days yet still presents with an alcohol level reported as
high. He describes generalized body aches and a history of high blood pressure. He also reports intermittent loss of consciousness in the past, with past seizure activity. He attributes some symptoms possibly to withdrawals, reporting body aches and
'parents are smoking for no reason,' potentially indicating tremors or psychiatric effects. He reports a history of broken bones but did not elaborate on specific fractures.
PAST MEDICAL AND SURGICAL HISTORY
The patient has a history of diabetes and admits to fracture injuries.
SOCIAL DETERMINANTS AFFECTING HEALTH
The patient currently resides with his son, in an environment described as challenging due to continued alcohol and cannabis use in the household. 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 Given the current living situation, the patient expresses an
inability to continue his lifestyle, indicating a need for help.
SOCIAL HISTORY
The patient reports heavy alcohol use, consuming a case of beer and half a gallon of vodka daily previously. Additionally, he reports taking Xanax and Percocet regularly. He states that he lives with his son but it is not an ideal environment since
his son 'gets high all the time' and patient is trying to stop
PHYSICAL EXAM
General: Alert, no acute distress. Anasarca
Skin: Warm, dry. Swelling on the extremities. Small healing blister on his upper lip
Head: Normocephalic, atraumatic.
Neck: Supple, trachea midline.
Eye Ears, Nose, Mouth and Throat: Oral mucosa moist. Partially edentulous
Cardiovascular: Normal peripheral perfusion, No edema.
Respiratory: Respirations are non-labored.
Gastrointestinal: Abdomen distended with ascitic fluid wave
Musculoskeletal: Normal range of motion, normal strength. Resting tremors
Neurological: Alert and oriented to person, place, time, and situation, No focal neurological deficit observed.
Psychiatric: Anxious affect
PROBLEM LIST
Acute Problems:
- Syncope
- Generalized body aches
- Possible alcohol withdrawal symptoms
Chronic Problems:
- Diabetes
- Substance use disorder (alcohol and prescription medications)
PLAN
The patient expresses the desire for help, indicating potential interest in treatment for substance abuse and alcohol dependency. Assess for withdrawal symptoms and possible inpatient detoxification and weaning plan from substances. Monitor and
manage blood pressure as it is noted to be elevated.
DIFFERENTIAL DIAGNOSIS
The Differential Diagnosis includes, in no particular order and is not limited to:
- Alcohol withdrawal syndrome
- Substance-induced hypoglycemia
- Orthostatic hypotension
- Dehydration
- Acute intoxication
- Seizure disorder
- Cardiac arrhythmia
- Vasovagal syncope
- Medication overdose or interaction
- Stroke or transient ischemic attack
CARE-UPDATE
10/08/25 - 23:27
The patient currently denies any suicidal or homicidal ideation or intent to self-harm. Previous urine drug screen was positive for fentanyl, phenobarbital, benzodiazepines, and cocaine. No current hematemesis or signs of alcohol withdrawal are
observed. Monitoring for any changes in mental status or withdrawal symptoms continues.
CARE-UPDATE
10/08/25 - 23:31
Blood sugar remains significantly elevated at 366. The anion gap is currently 11. The patient acknowledges non-compliance with diabetes medications, leading to poor glycemic control. Consider reviewing the medication regimen and reinforcing the
importance of adherence to achieve better management of his diabetes.
Disposition:
SUMMARY OF ENCOUNTER
The patient is a 55-year-old male with a history of chronic alcohol use, who presented to the emergency department after experiencing a syncope episode resulting in a head strike. He expresses a desire for help with his alcoholism, reporting the
consumption of large amounts of alcohol, benzodiazepines, and narcotics daily. He describes experiencing withdrawal symptoms, swelling, and abdominal distension. The patient has a history of seizures and feels his condition is worsening. Due to the
complexity and risks associated with his presentation and underlying conditions, admission to the hospitalist service was deemed necessary for further evaluation and treatment.
DISPOSITION
Admit
ASSESSMENT
The patient exhibits signs of alcohol withdrawal and possible alcohol use disorder, with potential complications from benzodiazepine and narcotic use. The syncope episode, head trauma, swelling, and abdominal distension are concerning for acute
exacerbation of chronic conditions related to substance use.
PLAN
The patient should be admitted to the hospital for inpatient treatment, including monitoring for withdrawal symptoms, potential detoxification, management of any trauma sustained during the syncope episode, and evaluation of underlying conditions
contributing to abdominal distension and swelling.
MEDICAL DECISION MAKING
-Number and Complexity of Problems Addressed: Chronic conditions affecting care include substance use disorder (alcohol, benzodiazepines, narcotics), history of seizures, and possible alcohol withdrawal. Differential diagnosis includes alcohol
withdrawal syndrome, substance-induced hypoglycemia, orthostatic hypotension, dehydration, acute intoxication, seizure disorder, cardiac arrhythmia, vasovagal syncope, medication overdose or interaction, stroke, or transient ischemic attack.
DIAGNOSIS
- Alcohol use disorder (ICD-10: F10.20)
- Alcohol withdrawal (ICD-10: F10.239)
- Substance use disorder, mixed (ICD-10: F19.20)
- Syncope (ICD-10: R55)
- Seizure disorder, unspecified (ICD-10: G40.909)
Past History
Past History
ED Past Medical History: CVA (with residual left side weakness 'off and on'), HTN, Hypercholesterolemia, NIDDM and Other (Cirrhosis, ETOH abuse)
ED Past Surgical History: None
Social History
Tobacco: Smoker ('five packs a day')
Alcohol: Chronic alcoholic (States one fifth of vodka and one case beer daily)
Drug: None
Personal: Other ()
Living: with family (Resides with his son and grandchildren)
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
Family History
Family History: Hypertension and CAD
Phy Exam
Physical Exam
Physical Exam:
.
Scores
Withdrawal Assessment of Alcohol
Withdrawal Assessment Completed?: Yes
Nausea and Vomiting: Intermittent nausea with dry heaves
Tactile Disturbances: Very mild itching, pins and needles, burning or numbness
Tremor: Moderate, with patient's arms extended
Auditory Disturbances: Not present
Paroxysmal Sweats: Beads of sweat obvious on forehead
Visual Disturbances: Not present
Anxiety: Moderately anxious, or guarded, so anxiety is inferred
Headache, Fullness in Head: Not present
Agitation: Moderately fidgety and restless
Orientation and clouding of sensorium: Disoriented for date by no more than 2 calendar days
Total CIWA Score: 23
Alcohol Withdrawal Medication Recommendation: Equal to MSAS >11. Lorazepam 2-4mg IV NOW and re-assess q1hr
Course
Orders/Labs/Results
Orders:
Orders
10/08/25 21:24
COVID-19 Antigen Urgent
Source: Nasal Swab
Influenza A+B Rapid Molecular Urgent
MYRNA Source: Nasal Swab
Specimen Description:
10/08/25 21:34
Alcohol Urgent
CMP [Comprehensive Metabolic Panel] Urgent
Complete Blood Count/With Diff Urgent
10/08/25 21:45
Electrocardiogram (*1) Urgent
Reason for Study: Tachycardia
CT Head W/o Iv Contrast Urgent
Comment:
Reason For Exam: fall, head injury, alcohol use
Cervical Spine wo Contrast CT [CT Cervical Spine W/o Iv Contr] Urgent
Comment:
Reason For Exam: fall, head injury, alcohol use
10/08/25 21:46
EKG- Treatment ONCE
10/08/25 23:32
Lorazepam [Ativan] 1 mg IV NOW STA
10/08/25 23:42
Admit/Transfer Patient As Directed
Co-Sign Provider:
Level of Care: Inpatient admission
Assign to:: IMU- Intermediate Care
Physician / Group: Garrett
Diagnosis: Alcohol Withdrawal
Reason for Hospitalization: Alcohol Withdrawal
Expected length of stay greater than two midnights?: Yes
ELOS- Estimated Length of Stay in days: 3
I certify the patient meets the requirements for IP care: Yes
PRN Pain Medication Management As Directed
May give lesser potent ordered pain med per pt: Yes
preference::
Protocol:: Medication orders for pain may be administered in a
manner that supports deferring to patient preference
when the pt is:
- Requesting an ordered lesser potent pain medication.
Least to most potent pain medications are defined
as: acetaminophen < NSAID < tramadol < opioids
(morphine, oxycodone, hydromorphone).
- Requesting a lesser dose of the same medication IF
ORDERED.
- Requesting a less intrusive route of administration
if both routes are prescribed by the provider (PO <
IV).
10/08/25 23:43
Code Status As Directed
Resuscitation Status: Full Code
10/08/25 23:53
Drug Screen, Urine [Urine Drug Abuse Screen] Urgent
Date Specimen was Collected: 10/08/25
Time Specimen was Collected: 23:52
Urinalysis Reflex To Culture Urgent
Date Specimen was Collected: 10/08/25
Time Specimen was Collected: 23:52
10/09/25 00:47
0.9% Sodium Chloride [Nss (Preservative Free)] See Protocol IV PRN PRN
Acetaminophen [Tylenol] 650 mg PO Q4HPRN PRN
FOLic ACID [Folvite] 1 mg 0.9% Sodium Chloride 50 ml [Nss] 50 ml IV DAILYPRN
Lactated Ringers [Lr] 1,000 ml IV 125 mls/hr
Lorazepam [Ativan] 1 mg IV Q1HPRN PRN
Lorazepam [Ativan] 1 mg PO Q2HPRN PRN
Lorazepam [Ativan] 2 mg IV Q1HPRN PRN
Ondansetron Injectable [Zofran] 4 mg IV Q6HPRN PRN
Thiamine Injection 200 mg IV Q8
10/09/25 00:47
Case Management Consult Once
Case Management Consult: Other
Comment: Substance abuse counseling
DIETARY IP CONSULT Routine
Reason for Consult: Nutrition support, possible refeeding guidelines
PTT Urgent
Prothrombin Time Urgent
TSH Reflex To Free T4 Routine
Activity As Directed
Activity Level: Ambulate
With Assistance
Bladder Scan As Directed
Follow Bladder Retention/Intermittent Cath Algorithm?: Yes
PRN if no void in __ hours: 6
Frequency: Per Retention Algorithm
If Bladder Scan Result >: 400
then:: Straight cath
EKG with chest pain [ECG as needed] As Directed
ECG as needed for:: Chest Pain
I/O [Intake/ Output] As Directed
Frequency: Per unit guidelines
MSAS SCORE As Directed
MSAS Score 0-4: Repeat MSAS every 2 hours until 0-4 for three consecutive assessments, then every 4 hours x 48
hours.
MSAS Score 5-7: For MILD withdrawl symptoms. Repeat MSAS and RASS every 2 hours
MSAS Score 8-11: For MODERATE withdrawal symptoms. Repeat MSAS and RASS every 1 hour. Consider ICU or IMU
level of care.
MSAS Score > 11: For SEVERE withdrawal symptoms. Repeat MSAS and RASS every 1 hour. Notify provider, consider
ICU level of care.
MSAS Additional Instructions: If no improvement or no decrease in score from severe to moderate within 12
hours, consult psychiatry
MSAS Notify Provider: Notify provider if patient requires more than 10 mg of Lorazepam in eight hour period.
Neurological Checks As Directed
Frequency: q4h
Pneumatic Compression Sleeves As Directed
Type: Knee high
Precautions As Directed
Type of Precautions: Seizure
Aspiration
Straight Cath As Directed
Frequency: Per Retention Algorithm
Additional Instructions: straight cath as needed per acute urinary retention algorithm for 24 hrs
Additional Instructions: for bladder scan greater than 400 mL
Vital Signs As Directed
Frequency: Per unit guidelines
Weight As Directed
Frequency: Daily
Oxygen Therapy [O2 Therapy] [RESP] Routine
Titrate/Wean O2 to maintain O2 sat greater than (%): 94
DX Deep Vein Thrombosis Video Routine
10/09/25 01:01
Phenobarbital Sodium [Phenobarbital] 260 mg 0.9% Sodium Chloride 100 ml [Nss] 100 ml IV NOW
10/09/25 06:00
EKG [Electrocardiogram (*1)] IN AM
Reason for Study: Chest Pain
NPO
Allow oral meds: Yes
Allow clear liquids: Sips of Clears
Basic Metabolic Panel IN AM
Complete Blood Count/No Diff IN AM
LFT [Zvwnt-Zdjm-Wpvavmo] IN AM
Magnesium IN AM
Phosphorus IN AM
10/09/25 08:00
Amlodipine [Norvasc] 10 mg PO DAILY
FOLic ACID [Folvite] 1 mg PO DAILY
Pantoprazole [Protonix IV] 40 mg IV DAILY
Phenobarbital Sodium [Phenobarbital] 97.5 mg IV TID
10/09/25 18:00
Atorvastatin [Lipitor] 40 mg PO QPM
10/11/25 08:00
Phenobarbital [Luminal] 64.8 mg PO TID
10/12/25 08:00
Thiamine HCl [Vitamin B1] 100 mg PO BID
10/13/25 08:00
Phenobarbital [Luminal] 32.4 mg PO TID
Abnormal Lab Results
10/08/25
21:34
RBC 3.94 L 10^6/uL
(4.70-6.10)
Hgb 10.9 L g/dL
(13.0-18.0)
Hct 33.7 L %
(39.0-52.0)
MCHC 32.3 L g/dL
(33.0-37.0)
Sodium 132 L mmol/L
(135-145)
Carbon Dioxide 21 L mmol/L
(22-30)
BUN 5 L mg/dl
(9-20)
Creatinine 0.6 L mg/dL
(0.7-1.3)
Glucose 366 H mg/dl
(70-99)
10/08/25 21:34
10/08/25 21:34
Vital Signs
Initial and Last Documented VS:
Initial Vital Signs
Temp Pulse Resp BP Pulse Ox
98.9 F 114 20 158/88 98
10/08/25 20:42 10/08/25 20:42 10/08/25 20:42 10/08/25 20:42 10/08/25 20:42
Last Documented Vital Signs
Temp Pulse Resp BP Pulse Ox
100.3 F 115 13 157/80 96
10/09/25 00:49 10/09/25 00:48 10/09/25 00:48 10/09/25 00:48 10/09/25 00:48
*Radiology
Radiology exam reviewed: radiology read reviewed
*Pulse Oximetry
SaO2: 99
Oxygen Mode of Delivery: Room air
Patient hypoxic: no
*Critical Care Note
Total Time (30-74mins, 75-104mins- exclusive of procedures): 35 (Critical care statement: A total of 35 minutes of critical care time was provided for this patient. This time is separate from time utilized to perform the aforementioned documented
procedures. Aggregate critical care time includes only time during which I was engaged in work directl)
ED Attending Note
-
Portions of this chart may have been created with voice recognition software.� Occasional wrong word or��sound alike� substitutions may have occurred due to the inherent limitations of voice recognition software.
Discharge Plan
Departure
Patient Disposition: Admit
Date of Disposition: 10/09/25
Time of Disposition: 01:02
Admit to: Telemetry
Presentation/result/management discussed w/ accepting MD/DO: Hospitalist
Discharge Problem:
Alcohol abuse, Obesity due to excess calories, Substance abuse
Interventions
Interventions:
*Risk Screen - Suicide Last Done: 10/08/25 20:49
*General Assessment Last Done: 10/08/25 20:49
*Neglect/Abuse Screening Last Done: 10/08/25 20:49
*ED COVID-19 Vaccine History Last Done: 10/08/25 20:49
*ED Influenza Vaccine History Last Done: 10/08/25 20:49
[facility] Fall Risk Assessment Tool Last Done: 10/08/25 21:54
*Nursing Disposition Last Done: 10/09/25 00:51
ED-Musculoskeletal Assessment Last Done: 10/08/25 21:38
ED- Neurological Assessment Last Done: 10/08/25 21:38
ED-Skin Assessment Last Done: 10/08/25 21:38
--- NOTE | 2025-10-08 23:46 | HPS.HSE ---
Family Physician
-
Family Physician: * NONE
Chief Complaint
-
Syncope
History of Present Illness
Patient is a 55y M with PMH significant for alcohol use disorder, HTN and DM-II who presents to ED for evaluation after syncopal episode today. History obtained primarily from ED staff / record - minimal additional input from patient due to
mental status. Patient reportedly had episode of syncope earlier today while at the grocery store. Patient indicated that he stopped drinking alcohol two days ago - last drink was 'Sunday or Sunday'. He typically drinks one case of beer and 1/2
gallon of vodka daily. He also smokes marijuana daily. Patient indicated to ED staff that he has prior h/o syncope and seizure activity when withdrawing from alcohol.
He was last admitted here in July with alcohol withdrawal symptoms. He signed out AMA from that hospitalization.
Patient answers some questions at the time of my examination. He reports pain in his 'belly and back'. He reports nausea but denies emesis.
Other questions he cannot or does not answer - ? due to sedation (Ativan in the ED) or withdrawal symptoms.
Medical History
Past Medical History
Past Medical History: Reports Other
Additional Past Medical History:
Chronic Alcohol Use Disorder
Cirrhosis / Esophageal Varices
Guerda-Burgos Tear
Hypertension
Dyslipidemia
DM-II, Uncontrolled
Prior CVA (s/p tPA x 2 - most recently 03/03/23)
Past Surgical History: Reports None and Other
Social History
Tobacco: Smoker (5 ppd 100 cigarettes daily)
Alcohol: Daily (1/2 gallon vodka, 1 case beer 22 beers )
Drug: Other (Cocaine (nasal / crack), Xanax 17-18 daily on average, THC daily / 'all the time'.)
Personal: Partner (girlfriend)
Living: With Family (Son - who also has substance use disorder issues.)
Employment: Disabled
Family History
Family History: Other (Son - Substance Use Disorder)
Allergies / Home Medications
Allergies reflects when Allergies were last updated in [facility].
Home Medications with original date entered in [facility]
Allergy/Medication List:
Unable to verify / confirm current meds due to sedation / mental status.
If medication reconciliation has not been performed, why?: Medication List N/A
Review of Systems
-
Unable to obtain full review of systems at this time due to: Other (Sedation)
History Source: Patient
Respiratory: Denies Trouble Breathing
Cardiac: Reports Syncope; Denies Chest Pain
Abdomen/GI: Reports Abdominal Pain and Nausea; Denies Vomiting, Diarrhea or Bloody Stools
Musculoskeletal: Reports Other (Back Pain)
Neurological: Reports Headache; Denies Dizzy
Psych: Denies Depression or Anxiety
Physical Exam
Vital Signs
Vital Signs
Temp Pulse Resp BP Pulse Ox
99.6 F 112 17 149/74 99
10/08/25 21:22 10/08/25 22:15 10/08/25 22:15 10/08/25 22:00 10/08/25 23:32
Physical Exam
General: Other (55y M lying in R lateral recumbent position. Answers some questions - responds to tactile stimuli / loud voice. Falls quickly back to sleep.)
HEENT: Other (Dry MM. Neck supple.)
Respiratory: Clear; No Wheezes, Rales or Rhonchi
Cardiac: S1/S2 and Tachycardia; No Murmur
GI: Soft, Non Tender, Non Distended and Normal Bowel Sounds
Musculoskeletal: No Clubbing, No Cyanosis and No Edema
Neuro: Sedated and Other (Moves all 4 extremities spontaneously.)
Laboratory Results
-
10/08/25 21:34
10/08/25 21:34
Laboratory Results
Total Bilirubin 0.3 mg/dl (0.2-1.3) 10/08/25 21:34
AST 22 U/L (17-59) 10/08/25 21:34
ALT 18 U/L (0-50) 10/08/25 21:34
Alkaline Phosphatase 110 U/L (38-126) 10/08/25 21:34
Impression/Plan
-
A/P: Patient is a 55y M with PMH significant for alcohol use disorder, prior CVA, HTN and DM-II who presents to ED for evaluation after reported syncopal event today.
Alcohol Withdrawal Syndrome
Syncope
- Admit to IMU for further evaluation and treatment.
- CT head and C-spine unremarkable in the ED.
- Phenobarbital protocol given prior history of alcohol withdrawal syndromes.
- Monitor on telemetry.
- Supportive care including IVFs, BZDs PRN, etc.
- Follow for clinical improvement.
- Seizure precautions / aspiration precautions.
DM-II, Uncontrolled
- Not clear if patient is compliant with medications.
- Follow glucose and cover with SSI for now.
- Update A1C.
- Resume PO medications when able.
Benign Hypertension
- Continue amlodipine with holding parameters.
- Need to confirm current meds, compliance, etc as noted above.
- Adjust regimen as needed for adequate BP control.
History of CVA
- s/p tPA in the past. No current focal neurologic changes. Normal CT as noted above.
- ? prior event(s) related to drug use (cocaine, etc).
- Follow for any neurologic symptoms.
Reported Cirrhosis / Varices
- Repeated EGD / imaging without evidence of either (most recent 08/22/25).
- IV PPI daily for now.
- Follow for any hematemesis, melena, etc.
Polysubstance Use Disorder
- UDS is pending at present.
- Previously with multiple substances of abuse in addition to alcohol.
- Follow-up UDS results.
- Continue supportive measures.
DVT Prophylaxis: SCDs
Code Status: Full
[2025-10-08] MEDS: ATIVAN 1 MG IV (23:48)
[2025-10-09] VITALS (14 sets, daily range): BP systolic 62–169; BP diastolic 45–97; BMI 34.4
[2025-10-09 00:14] LABS: Urine Character Clear (Clear)
[2025-10-09 00:32] LABS: Urine Red Blood Cell 0-2 /HPF (0-2); Urine Squamous Cell 0-2 /LPF (Few); Urine White Cell 0-2 /HPF (0-5)
[2025-10-09] MEDS: LR 1000 IV (00:53)
[2025-10-09 01:04] LABS: Glucose - Point of Care 299 mg/dl (70-99)
[2025-10-09] MEDS: PHENOBARBITAL 104 MG IV (01:18)
--- NOTE | 2025-10-09 01:30 | PTCARENOTE ---
Received pt from ED. Pulled over to bed from stretcher. Pt is drowsy, arousable to voice and pain. Unable to answer questions meaningfully. MSAS= 6, but pt not alert enough to take PO ativan at this time. ST 110s-120s on heart monitor. SaO2 95% on
RA. R forearm PIV with LR infusing at 125mL/hr. SCDs placed. Bed alarm on. Will continue to monitor.
[2025-10-09] MEDS: THIAMINE INJECTION 200 MG IV ×3 (01:32→16:46)
[2025-10-09 04:46] LABS: Hematocrit 31.9 % (39.0-52.0); Hemoglobin 10.5 g/dL (13.0-18.0); Mean Corp Hgb Conc. 32.9 g/dL (33.0-37.0); Mean Corpuscular Volume 86.0 fL (80.0-94.0); Platelet Count 260 10^3/uL (130-400); Red Cell Dist. Width 13.7 % (11.5-14.5)
[2025-10-09 04:48] LABS: INR 1.05; PT 13.5 Sec (11.4-14.6)
[2025-10-09 04:49] LABS: APTT 29.9 Sec (23.4-35.0)
[2025-10-09 05:05] LABS: ALT (SGPT) 16 U/L (0-50); AST (SGOT) 21 U/L (17-59); Albumin 3.2 g/dl (3.5-5.0); Alkaline Phosphatase 103 U/L (38-126); Blood Urea Nitrogen 4 mg/dl (9-20); Calcium 8.3 mg/dl (8.4-10.2); Carbon Dioxide 22 mmol/L (22-30); Chloride 106 mmol/L (98-107); Estimated Creatinine Clearance > 125 ml/min; Glucose 245 mg/dl (70-99); Magnesium 1.5 mg/dl (1.6-2.3); Potassium 3.8 mmol/L (3.5-5.1); Sodium 133 mmol/L (135-145); Total Protein 7.0 g/dl (6.3-8.2); eGFR > 60.00
[2025-10-09 08:10] LABS: Glucose - Point of Care 157 mg/dl (70-99)
[2025-10-09] MEDS: NSS (PRESERVATIVE FREE) 10 ML IV (08:47)
[2025-10-09] MEDS: PROTONIX IV 40 MG IV (08:48)
[2025-10-09] MEDS: FOLVITE 1 MG PO (09:01)
[2025-10-09] MEDS: NORVASC 10 MG PO (09:01)
[2025-10-09] MEDS: NOVOLOG FLEXPEN-MODERATE RESISTANCE 1 UNITS SC ×2 (09:29→12:41)
[2025-10-09 11:05] LABS: Glycohemoglobin (HgbA1c) 8.0 % (4.0-5.9)
[2025-10-09 12:40] LABS: Glucose - Point of Care 185 mg/dl (70-99)
[2025-10-09] MEDS: ATIVAN 1 MG PO (13:56)
[2025-10-09] MEDS: TYLENOL 650 MG PO (13:56)
[2025-10-09] MEDS: ZOFRAN 4 MG IV (13:56)
--- NOTE | 2025-10-09 14:42 | CM ---
I.A: Completed By GUSTAVO Willis. Patient is confused and/ or will not communicate with CM. All patient could say is that he lives with his son. GUSTAVO Willis saw note from Jul 2025 that he left AMA and refused BCARES then.
Chart states he lives with his son in a house (level?) and likely Independent with all ADL's. Unable to ask re: resources for D&A. GUSTAVO tried to call son and daughter, both numbers say 'person is not available now, please try you call again later'.
PLAN: Anticipate Home No Needs.
[2025-10-09] MEDS: LR IV (15:17)
--- NOTE | 2025-10-09 15:30 | PTCARENOTE ---
Patient AAOX3. Patient in and out of drowsiness and agitation. MSAS in beginning of shift at a 2 but increased to 5 around 1400 for restlessness, nausea and HR. Po Ativan given per protocol along with Zofran and Tylenol with + results. Attempted to
educate patient on Stroke( for prior CVA) however patient refused teaching. NPO order changed to regular diet with no signs of aspiration. Patient tolerated food and drink well. Bed alarm set with no attempts to exit bed at current time. LR dc'd by
and IV Phenabarb changed to PO due IV access limited to right foot. No signs of distress. Call naylor within reach. Patient resting comfortably.
--- NOTE | 2025-10-09 15:54 | W.PN.HOSP.TC ---
Today's Communication/Plan
-
see note
Assessment / Plan
Assessment / Plan
Alcohol Withdrawal Syndrome
Syncope
- CT head and C-spine unremarkable in the ED.
- MSAS score reviewed and not significantly elevated
- Difficult IV access. Ordering p.o. phenobarb taper
- Monitor on telemetry.
- Supportive care including IVFs, BZDs PRN, etc.
- Seizure precautions / aspiration precautions.
Substance use
- Urine drug screen positive for cocaine, patient reported snorting it
- Patient expected to be sedated/lethargic once coccaine out of system
Acute toxic encephalopathy
- Combination of under cocaine effect and possible new alcohol withdrawal setting in
- Treat underlying problems as above
DM-II, Uncontrolled
- Not clear if patient is compliant with medications.
- Follow glucose and cover with SSI for now.
- Hbga1c 8
- Resume PO medications when able.
Essential Hypertension
- Continue amlodipine with holding parameters.
- Need to confirm current meds, compliance, etc as noted above.
- Adjust regimen as needed for adequate BP control.
History of CVA
- s/p tPA in the past. No current focal neurologic changes. Normal CT as noted above.
- ? prior event(s) related to drug use (cocaine, etc).
- Follow for any neurologic symptoms.
Reported Cirrhosis / Varices
- Repeated EGD / imaging without evidence of either (most recent 08/22/25).
- IV PPI daily for now.
- Follow for any hematemesis, melena, etc.
DVT Prophylaxis: SCDs
Code Status: Full
Anticipated Discharge: 24 - 48 hours
Subjective/Interval History
-
Date of Service: October 09, 2025
Patient responsive to verbal cue
Agitated at times
No other acute events reported
Objective Data
-
Labs:
Laboratory Results
10/09/25
04:28
WBC 7.2
Hgb 10.5 L
Hct 31.9 L
Plt Count 260
PT 13.5
INR 1.05
APTT 29.9
Sodium 133 L
Potassium 3.8
Chloride 106
Carbon Dioxide 22
BUN 4 L
Creatinine 0.5 L
Glucose 245 H
Calcium 8.3 L
Total Bilirubin 0.3
AST 21
ALT 16
Alkaline Phosphatase 103
Vital Signs:
Vital Signs
Temp Pulse Resp BP Pulse Ox
99.4 F 90 13 152/87 100
10/09/25 11:38 10/09/25 13:00 10/09/25 13:00 10/09/25 12:00 10/09/25 13:00
I&O
10/08/25 10/09/25 10/10/25
06:59 06:59 06:59
Intake Total 854 / 854 1085 / 1085
Output Total 0 / 0 900 / 900
Balance 854 / 854 185 / 185
Review of Systems
-
Respiratory: Reports No Symptoms
Cardiac: Reports No Symptoms
Abdomen/GI: Reports No Symptoms
Physical Exam
-
General: Comfortable and Morbidly Obese
HEENT: Negative Oxygen
Cardiac: Rub
GI: Soft and Nontender
Neuro: Awake and Nonfocal/Grossly Intact
Psych: Confused and Agitated
[2025-10-09] MEDS: LUMINAL 64.8 MG PO ×2 (16:46→21:07)
[2025-10-09] MEDS: NOVOLOG FLEXPEN-MODERATE RESISTANCE 3 UNITS SC (16:58)
[2025-10-09 17:07] LABS: Glucose - Point of Care 236 mg/dl (70-99)
[2025-10-09] MEDS: LIPITOR 40 MG PO (18:18)
[2025-10-09 21:17] LABS: Glucose - Point of Care 286 mg/dl (70-99)
[2025-10-10] VITALS (7 sets, daily range): BP systolic 133–178; BP diastolic 68–98; BMI 34.4
[2025-10-10] MEDS: THIAMINE INJECTION 200 MG IV ×2 (00:45→08:08)
--- NOTE | 2025-10-10 03:00 | PTCARENOTE ---
Patient AAOx3, very drowsy and sleeping most of the night. When awake pt is agitated and uncooperative with care. MSAS 4. Pt denies nausea. Pt does have a frequent dry cough. NSR to ST on the monitor. RA, 97%. Call naylor within reach.
--- NOTE | 2025-10-10 05:43 | PTCARENOTE ---
Pt adamantly refusing AM lab work. Attempted to educate patient, pt increasingly agitated and began thrashing around in the bed. Will pass onto dayshift team.
[2025-10-10] MEDS: NORVASC 10 MG PO (08:07)
[2025-10-10] MEDS: FOLVITE 1 MG PO (08:07)
[2025-10-10] MEDS: LUMINAL 64.8 MG PO (08:07)
[2025-10-10] MEDS: PROTONIX IV 40 MG IV (08:08)
[2025-10-10] MEDS: NSS (PRESERVATIVE FREE) 10 ML IV (08:08)
[2025-10-10] MEDS: NOVOLOG FLEXPEN-MODERATE RESISTANCE SC (08:20)
[2025-10-10 08:30] LABS: Glucose - Point of Care 141 mg/dl (70-99)
[2025-10-10] MEDS: TYLENOL 650 MG PO (11:16)
[2025-10-10] MEDS: ATIVAN 1 MG PO (11:16)
--- NOTE | 2025-10-10 11:22 | PTCARENOTE ---
AAOx3 ate 100% breakfast, eating own snacks in bed - disheveled refusing bath, oral care and refusing to get oob. Unable to do ortho vs at this time. C/o pain 6/10 whole body, MSAS 5- PRN Tylenol and Ativan given. Right foot int intact and
patent. SR on tele, RA 97%. Voids clear yellow in urinal.
--- NOTE | 2025-10-10 12:06 | PTCARENOTE ---
OOB now took off all monitors and pulled out right foot int. Escorted to bathroom - steady - insisting on putting his pants on - knots untied for him. Refusing to replaced monitors, Dr. Rascon aware.
--- NOTE | 2025-10-10 12:40 | PTCARENOTE ---
Refused instructions, refusing any assistance. Refused to have lunch. Eating and spitting sunflower seeds all over. He states no ride coming. Escorted outside. Security made aware.
--- NOTE | 2025-10-10 14:26 | CM ---
CM reviewed chart and noted dc order
Pt refused dc paperwork and instructions
Was escorted- left prior to CM meeting with him
Discharge Disposition- home no needs
--- NOTE | 2025-10-10 16:42 | W.DCSUMMARY ---
Discharge Summary
Discharge Data
Date of Admission: 10/08/25
Date of Discharge: 10/10/25
-
Pending Results: No
Hospital Course
Discharging Physician : Dr Dejon Rascon
Disposition : To home
Primary care physician : Unknown
Principal Discharge diagnosis :
Syncope
Substance use
Alcohol abuse
Acute toxic encephalopathy
Chronic Discharge diagnosis :
Type 2 diabetes melitis
History of CVA status post thrombolytics
Essential hypertension
Cirrhosis
History of versus
Morbid obesity
Medication noncompliance
Physical examination:
GEN: aox3
Neuro: No motor or sensory deficits,
Ext: No edema
Psych : calm
Hospital Course :
Patient is a 55-year-old male with no mentioned past medical history came to ER after having syncopal episode at grocery store. Patient with history of substance use and alcohol use and has been drinking through the weekend. In the ER patient was
noted to be encephalopathic and there was concern of patient possibly developing new alcohol withdrawal. CT head was done which ruled out any acute issues. Patient was admitted for further monitoring. Patient was started on phenobarb protocol in
conjunction with IV Ativan. Urine drug screen was tested positive for cocaine. For initial 24-hour of hospitalization patient was sedated/somnolent. Patient had improvement in mentation after that and did not require further therapy. Patient
declined to be evaluated by physical therapy, having orthostatic vitals checked. As patient was independent patient was discharged home with continuation of home medication.
Important imaging findings :
None
Procedure findings :
None
Discharge Plan
-
Patient Disposition: Home (Routine Discharge)
Discharge Diagnosis/Procedures: Substance use, Syncope
Condition: Fair
Diet: Regular
Activity: As tolerated
Driving Restrictions: No driving
Bathing Restrictions: OK to Shower
Referrals:
NONE,* [Family Provider, Internal Medicine]
Prescriptions:
Continued
gabapentin 300 mg Capsule
300 mg PO BID Qty: 0
lactulose 10 gram/15 mL Solution
10 g PO DAILYPRN PRN (Reason: constipation)
trazodone 50 mg Tablet
50 mg PO HS
cyanocobalamin (vitamin B-12) 1,000 mcg Tablet
1,000 mcg PO DAILY
atorvastatin 40 mg tablet
40 mg PO QPM
metformin 500 mg Tablet
500 mg PO BID
lisinopril 20 mg Tablet
20 mg PO DAILY
pantoprazole [Protonix] 20 mg Tablet,Delayed Release (Dr/Ec)
20 mg PO DAILY
amlodipine [Norvasc] 10 mg Tablet
10 mg PO DAILY
hydrochlorothiazide 25 mg Tablet
25 mg PO DAILY
insulin aspart U-100 [Novolog FlexPen U-100 Insulin] 100 unit/mL (3 mL) Insulin Pen
1 sliding scale dose SC AC
Discharge Orders:
Discharge Patient (As Directed); Ordered 10/10/25
Ordered By: Dejon Rascon
Discharge Date and Time
Discharge Date/Time: 10/10/25 12:39
Print Language: MONEGASQUE
== END 2025-10-10 12:39 | disposition home or self-care (01) | DRG 896 ==
LOC: IMU 23:50
PROVIDERS: Emergency Medicine; ADMITTING PHYSICIAN Hospitalist; ATTENDING PHYSICIAN Hospitalist; EMERGENCY PHYSICIAN Student in an Organized Health Care Education/Training Program
DX: F10.239 Alcohol dependence with withdrawal, unspecified (principal); G92.9 Unspecified toxic encephalopathy; I69.354 Hemiplegia and hemiparesis following cerebral infarction affecting left non-dominant side; F13.20 Sedative, hypnotic or anxiolytic dependence, uncomplicated; R55 Syncope and collapse; E11.9 Type 2 diabetes mellitus without complications; G40.909 Epilepsy, unspecified, not intractable, without status epilepticus; F17.210 Nicotine dependence, cigarettes, uncomplicated; E78.00 Pure hypercholesterolemia, unspecified; I10 Essential (primary) hypertension; K74.60 Unspecified cirrhosis of liver; F12.90 Cannabis use, unspecified, uncomplicated; F14.90 Cocaine use, unspecified, uncomplicated; E66.01 Morbid (severe) obesity due to excess calories; Z68.35 Body mass index [BMI] 35.0-35.9, adult; Z91.148 Patient's other noncompliance with medication regimen for other reason; Z82.49 Family history of ischemic heart disease and other diseases of the circulatory system; Z11.52 Encounter for screening for COVID-19
CPT/HCPCS: 70450; 72125; 80053; 80306; 80307; 81003; 81015; 82077; 82248; 82962; 83036; 83735; 84100; 84443; 85025; 85027; 85610; 85730; 87502; 87811; 93005; 96374; 99291